=== PATIENT | male | born 1985 | race Hispanic/Latino ===

== ENCOUNTER 2022-05-16 18:18 | Emergency (ER) | payer MEDICAID ==
[~2022-05-16] VITALS: Ht 170.2 cm; Wt 70.4 kg
[~2022-05-16 18:18] MED LIST: HYDROCORTISO2.51 EX; SOLU-MEDROL125 MG IM
[2022-05-16 18:47] VITALS: BP 121/73
[2022-05-16 19:02] VITALS: BP 120/76
[2022-05-16 19:30] VITALS: BP 108/81
[2022-05-16 19:43] VITALS: BP 108/81
== END 2022-05-16 19:47 | disposition home or self-care (01) ==
LOC: ED 18:18
DX: U07.1 COVID-19 (principal); J02.9 Acute pharyngitis, unspecified; K14.0 Glossitis

== ENCOUNTER 2024-04-09 19:16 | Emergency (ER) | payer OTHER ==
[~2024-04-09] VITALS: Ht 170.2 cm; Wt 73.0 kg
[2024-04-09] MEDS ORDERED: DEXAMETHASONE SOD. PHOSPHATE 10 MG/ML VIAL IM ONE (20:20)
[2024-04-09] MEDS ORDERED: MEDDOSEPAK PO (20:21)
[2024-04-09 20:40] VITALS: BP 133/81
== END 2024-04-09 20:40 | disposition home or self-care (01) ==
LOC: ED 19:16
DX: U07.1 COVID-19 (principal); R05.9 Cough, unspecified; R09.81 Nasal congestion; R50.9 Fever, unspecified; J02.9 Acute pharyngitis, unspecified; R52 Pain, unspecified